=== PATIENT | female | born 1950 | race Caucasian/White ===

== ENCOUNTER → 2018-06-19 08:18 | Outpatient (CLI) | payer MEDICARE, BC, SELFPAY ==
[2018-06-19 08:48] LABS: Alanine Aminotransferase 27 IU/L (9-52); Albumin 4.4 g/dL (3.5-5.0); Albumin Globulin Ratio 1.6 (1.0-2.8); Alkaline Phosphatase 65 U/L (38-126); Aspartate Aminotransferase 25 IU/L (14-36); BUN Creatinine Ratio 21.1 (6-22); Bilirubin Total 0.7 mg/dL (0.2-1.3); Blood Urea Nitrogen 19 mg/dL (7-17); Calcium 9.7 mg/dL (8.4-10.2); Carbon Dioxide 31 mmol/L (22-32); Chloride 100 mmol/L (98-107); Estimated Glomerular Filt Rate > 60.0 mL/min (>60); Globulin 2.8 g/dL (1.7-4.1); Glucose 98 mg/dL (80-110); HEMOLYSIS < 15 (0-50); Potassium 3.6 mmol/L (3.4-5.1); Sodium 141 mmol/L (137-145); Total Protein 7.2 g/dL (6.3-8.2)
== END ==
PROVIDERS: Family Provider Family Medicine; PCP Family Medicine
DX: B35.3 Tinea pedis (principal)
CPT/HCPCS: 36415; 80053

== ENCOUNTER → 2018-09-15 08:12 | Outpatient (CLI) | payer MEDICARE, BC, SELFPAY ==
[2018-09-15 09:24] LABS: Alanine Aminotransferase 49 IU/L (9-52); Albumin 4.4 g/dL (3.5-5.0); Albumin Globulin Ratio 1.8 (1.0-2.8); Alkaline Phosphatase 65 U/L (38-126); Aspartate Aminotransferase 29 IU/L (14-36); BUN Creatinine Ratio 22.5 (6-22); Bilirubin Total 0.9 mg/dL (0.2-1.3); Blood Urea Nitrogen 18 mg/dL (7-17); Calcium 9.7 mg/dL (8.4-10.2); Carbon Dioxide 27 mmol/L (22-32); Chloride 102 mmol/L (98-107); Cholesterol 175 mg/dL (140-199); Estimated Glomerular Filt Rate > 60.0 mL/min (>60); Globulin 2.5 g/dL (1.7-4.1); Glucose 96 mg/dL (80-110); HDL Cholesterol 55 mg/dL (40-60); HEMOLYSIS < 15 (0-50); LDL Cholesterol Calculated 85 mg/dL (<100); Sodium 143 mmol/L (137-145); Total Protein 6.9 g/dL (6.3-8.2); Triglycerides 174 mg/dL (35-150)
[2018-09-15 12:00] LABS: Appearance Urine UA CLEAR; Bilirubin Urine UA NEGATIVE (NEGATIVE); Color Urine UA YELLOW; Glucose Urine UA NEGATIVE (Normal); Ketones Urine UA NEGATIVE (NEGATIVE); Leukocyte Esterase Urine UA NEGATIVE (NEGATIVE); Nitrite Urine UA NEGATIVE (Negative); Occult Blood Urine UA NEGATIVE (Negative); Protein Urine UA NEGATIVE (Negative); RBC Urine None Seen (0-5/HPF); Urobilinogen Urine UA 0.2 E.U./dL (0.2); pH Urine UA 6.5 (4.5-8.0)
[2018-09-15 12:59] LABS: Bacteria Urine Few (2-10); Culture Indicated Urine Cult Not Indicated; Squamous Epithelial Cell Urine 1-5 /HPF; WBC Urine 0-1/HPF (0-5/HPF)
== END ==
PROVIDERS: Family Provider Family Medicine; PCP Family Medicine; Visit Provider Family Medicine
DX: E78.2 Mixed hyperlipidemia (principal); I10 Essential (primary) hypertension; Z51.81 Encounter for therapeutic drug level monitoring
CPT/HCPCS: 80053; 80061; 81001

== ENCOUNTER 2018-10-18 13:34 | Emergency (ER) | payer MEDICARE, BC, SELFPAY ==
[2018-10-18 13:35] VITALS: BP 132/74; PULSE 63; RESP 14; TEMP 37; O2SAT 100
--- NOTE | 2018-10-18 14:00 | DI.CT.S_ITS ---
PROCEDURE: CT HEAD/BRAIN WO CON INDICATIONS: CHRISTY, L eye vision change TECHNIQUE: Noncontrast 4.5 mm thick angled axial sections acquired from the foramen magnum to the vertex, with coronal and sagittal reformats. For radiation dose reduction, the following was used: automated exposure control, adjustment of mA and/or kV according to patient size. COMPARISON: None. FINDINGS: Image quality: Excellent. CSF spaces: Basal cisterns are patent. No extra-axial fluid collections. The ventricles are symmetric in size and shape. Brain: No intracranial bleeds or masses. There is cerebral volume loss for age, with resultant ventricular and sulcal prominence. There are periventricular and deep white matter chronic small vessel ischemic changes. There is intracranial internal carotid artery atherosclerosis. Skull and face: Calvarium and visualized facial bones appear intact, without suspicious lesions. Sinuses: Visualized sinuses and mastoids are clear. IMPRESSION: No CT evidence of acute intracranial pathology. Dictated by: Giovanni العلي M.D. on 10/18/2018 at 14:24 Approved by: Giovanni العلي M.D. on 10/18/2018 at 14:24
[2018-10-18] MEDS: PROPARACAINE 0.5% OPHTH SOL 1 DROPS EYE-BOTH (14:06)
--- NOTE | 2018-10-18 14:06 | ED.EYEPROB ---
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 She states she had a few flashers in her left eye yesterday maybe the day before but today as definitive change in the lateral aspect of her field of view. She describes it as a crack or a tear that she can see. When she moves her eye that deficit moves with it. She denies any injury. She denies any redness, watering or discharge. The remainder of her vision is unchanged in that eye. She denies other focal neurologic findings such as numbness, tingling or weakness. She has no change in her speech. She denies any history of the same. She has no associated pain MD chief complaint: vision change Onset (ago): hour(s) Onset description: sudden Duration: constant Location: left eye Eye Symptoms: decreased vision Place: home Mechanism: none Severity: moderate Treatments Prior to Arrival: none Related Data Patient tetanus UTD: Yes Home Medications Medication Instructions Recorded Confirmed coenzyme Q10 [Co Q-10] 100 mg PO QDAY #0 02/11/18 06/19/18 Previous Rx's Medication Instructions Recorded citalopram [Celexa] 10 mg PO QDAY #90 tab 02/11/18 hydrochlorothiazide 25 mg PO QDAY #90 tab 02/11/18 simvastatin 20 mg PO Q DAY #90 tab 02/11/18 potassium chloride ER 20 mEq 20 meq PO QDAY #30 tab 09/15/18 tablet,extended release Allergies Allergy/AdvReac Type Severity Reaction Status Date / Time adhesive tape [ADHESIVE TAPE] Allergy Severe WELTS Verified 10/18/18 13:50 Review of Systems Review of Systems All systems reviewed & are unremarkable except as noted in HPI and below Constitutional Denies chills, Denies fever(s), Denies lethargy and Denies weakness Eyes Reports change in vision, Denies eye discharge, Denies irritation, Reports loss of peripheral vision and Reports loss of vision ENT Ears, Nose, Mouth, and Throat: Denies change in voice, Denies neck pain and Denies sore throat Cardiovascular Denies chest pain, Denies irregular heart rhythm, Denies lightheadedness, Denies palpitations, Denies dyspnea, Denies dyspnea on exertion and Denies orthopnea Respiratory Denies cough, Denies dyspnea, Denies dyspnea on exertion and Denies wheezing Gastrointestinal Gastrointestinal: Denies abdominal pain, Denies change in bowel habits, Denies diarrhea, Denies nausea and Denies vomiting Genitourinary Denies hematuria, Denies flank pain, Denies urinary incontinence and Denies urinary urgency Musculoskeletal Denies neck pain Integumentary/Breasts Denies pruritus, Denies erythema, Denies rash and Denies wounds Neurologic Denies confusion, Reports loss of vision and Denies weakness Psychiatric Denies anxiety, Denies confusion, Denies depression, Denies homicidal ideation and Denies suicidal ideation Endocrine Denies palpitations Hematologic/Lymphatic Denies easy bruising Allergic/Immunologic Denies wheezing PFSH Surgical History Status post delivery Status post delivery Status post hysterectomy Family History Father Heart disease Grandfather Heart disease Grandmother Stroke Grandfather Heart disease Social History Smoking Status: Never smoker alcohol intake: never Exam Narrative Exam Narrative: GENERAL: This is a well-nourished, well-developed patient, in mild distress. Wearing sunglasses. HEAD: Atraumatic. Normocephalic. No temporal or scalp tenderness. EYES: Pupils equal round and reactive. Extraocular motions intact. No scleral icterus. No injection or drainage. Bedside ultrasound demonstrates no obvious sign of retinal detachment. Gumaro-Pen notes pressure of left eye 22mmHg. Patient reports visual field change laterally which moves with eye motion. She cannot see through this visual field change. Visual Acuity OS 20/70, OD 20/20, OU 20/20 ENT: Nose without bleeding, purulent drainage or septal hematoma. Throat without erythema, tonsillar hypertrophy or exudate. Uvula midline. Airway patent. NECK: Trachea midline. No JVD or lymphadenopathy. Supple, nontender, no meningeal signs. CARDIOVASCULAR: Regular rate and rhythm without murmurs, gallops, or rubs. RESPIRATORY: Clear to auscultation. Breath sounds equal bilaterally. No wheezes, rales, or rhonchi. GASTROINTESTINAL: Abdomen soft, non-tender, nondistended. No hepato-splenomegaly, or palpable masses. No guarding. EXTREMITIES: No clubbing, cyanosis, or edema. No joint tenderness, effusion, or edema noted. BACK: Nontender without deformity or crepitance. No flank tenderness. NEURO: AOx3. SKIN: No rash or erythema. Initial Vital Signs Initial Vital Signs: Vital Signs Temperature 98.6 F 10/18/18 13:35 Pulse Rate 63 10/18/18 13:35 Respiratory Rate 14 10/18/18 13:35 Blood Pressure 132/74 10/18/18 13:35 Pulse Oximetry 100 10/18/18 13:35 Course Orders Ordered: ED Orders 10/18/18 14:00 CT head/brain wo con Stat 10/18/18 14:31 Basic Metabolic Panel Stat Complete Blood Count AUTO DIFF Stat Discontinued Medications Proparacaine HCl (Parcaine 0.5% Ophth Chery) 1 drops EYE-BOTH NOW ONE Stop: 10/18/18 14:06 Last Admin: 10/18/18 14:06 Dose: 1 drop Consultations Consultation #1: I have a suspicion of possible retinal detachment, we have no ophtho call locally, call placed to [facility]. Patient does have Ophthalmology locally and has had cataract surgery in this eye, but cannot be seen in a reasonable time frame Dr. Salazar shares the opinion that patient needs to be seen tonight and requests transport by POV to [facility] tonight. NPO Dr. Major in ED is happy to accept Images pushed, COBRA forms signed. Time: 14:13 Vital Signs - 8 hr 10/18/18 13:35 10/18/18 14:30 10/18/18 15:00 Temperature 98.6 F Pulse Rate 63 63 58 L Respiratory Rate 14 16 Blood Pressure 132/74 Blood Pressure [Right Arm] 127/68 122/61 Pulse Oximetry 100 100 100 MDM - Eye Problem Lab Data Result diagrams: 10/18/18 14:31 10/18/18 14:31 Lab Results 10/18/18 10/18/18 Range/Units 14:31 14:31 WBC 9.4 (4.5-11.0) X10^3/uL RBC 4.97 (4.0-5.2) X10^6/uL Hgb 14.3 (12.0-16.0) g/dL Hct 42.5 (36-46) % MCV 85.5 (80-100) fL MCH 28.9 (26-34) PG MCHC 33.8 (30-36) % RDW 13.3 (11.6-14.8) % Plt Count 398 (150-400) X10^3/uL Neut % (Auto) 60.9 (50-75) % Lymph % (Auto) 29.7 (25-40) % [place] % (Auto) 5.5 (3-14) % Eos % (Auto) 3.0 (2-4) % Baso % (Auto) 0.9 (0-2) % Neut # (Auto) 5700 (5918-1989) /uL Sodium 145 (137-145) mmol/L Potassium 3.6 (3.4-5.1) mmol/L Chloride 101 (98-107) mmol/L Carbon Dioxide 30 (22-32) mmol/L BUN 20 H (7-17) mg/dL Creatinine 0.90 (0.52-1.04) mg/dL Estimated GFR > 60.0 (>60) mL/min BUN/Creatinine Ratio 22.2 H (6-22) Glucose 92 (80-110) mg/dL Calcium 10.2 (8.4-10.2) mg/dL Discharge Plan Departure Patient Disposition: [facility] Clinical Impression: Retinal detachment Activity Restrictions/Additional Instructions: Please DO NOT EAT OR DRINK Proceed DIRECTLY TO [facility] EMERGENCY tell them you were seen in [facility] and Dr. Ye spoke with Dr. Salazar (ophthalmology) and Dr. Major in the Emergency Department and they know you are coming Prescriptions: No Action coenzyme Q10 [Co Q-10] 100 MG capsule 100 mg PO QDAY Qty: 0 RF: 0 citalopram [Celexa] 10 MG tablet 10 mg PO QDAY Qty: 90 RF: 1 simvastatin 20 MG tablet 20 mg PO Q DAY Qty: 90 RF: 3 hydrochlorothiazide 25 MG tablet 25 mg PO QDAY Qty: 90 RF: 1 potassium chloride [K-Tab] 20 mEq tablet extended release 20 meq PO QDAY Qty: 30 RF: 0
--- NOTE | 2018-10-18 14:11 | ED_ITS ---
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 She states she had a few flashers in her left eye yesterday maybe the day before but today as definitive change in the lateral aspect of her field of view. She describes it as a crack or a tear that she can see. When she moves her eye that deficit moves with it. She denies any injury. She denies any redness, watering or discharge. The remainder of her vision is unchanged in that eye. She denies other focal neurologic findings such as numbness, tingling or weakness. She has no change in her speech. She denies any history of the same. She has no associated pain MD chief complaint: vision change Onset (ago): hour(s) Onset description: sudden Duration: constant Location: left eye Eye Symptoms: decreased vision Place: home Mechanism: none Severity: moderate Treatments Prior to Arrival: none Related Data Patient tetanus UTD: Yes Home Medications Medication Instructions Recorded Confirmed coenzyme Q10 [Co Q-10] 100 mg PO QDAY #0 02/11/18 06/19/18 Previous Rx's Medication Instructions Recorded citalopram [Celexa] 10 mg PO QDAY #90 tab 02/11/18 hydrochlorothiazide 25 mg PO QDAY #90 tab 02/11/18 simvastatin 20 mg PO Q DAY #90 tab 02/11/18 potassium chloride ER 20 mEq 20 meq PO QDAY #30 tab 09/15/18 tablet,extended release Allergies Allergy/AdvReac Type Severity Reaction Status Date / Time adhesive tape [ADHESIVE TAPE] Allergy Severe WELTS Verified 10/18/18 13:50 Review of Systems Review of Systems All systems reviewed & are unremarkable except as noted in HPI and below Constitutional Denies chills, Denies fever(s), Denies lethargy and Denies weakness Eyes Reports change in vision, Denies eye discharge, Denies irritation, Reports loss of peripheral vision and Reports loss of vision ENT Ears, Nose, Mouth, and Throat: Denies change in voice, Denies neck pain and Denies sore throat Cardiovascular Denies chest pain, Denies irregular heart rhythm, Denies lightheadedness, Denies palpitations, Denies dyspnea, Denies dyspnea on exertion and Denies orthopnea Respiratory Denies cough, Denies dyspnea, Denies dyspnea on exertion and Denies wheezing Gastrointestinal Gastrointestinal: Denies abdominal pain, Denies change in bowel habits, Denies diarrhea, Denies nausea and Denies vomiting Genitourinary Denies hematuria, Denies flank pain, Denies urinary incontinence and Denies urinary urgency Musculoskeletal Denies neck pain Integumentary/Breasts Denies pruritus, Denies erythema, Denies rash and Denies wounds Neurologic Denies confusion, Reports loss of vision and Denies weakness Psychiatric Denies anxiety, Denies confusion, Denies depression, Denies homicidal ideation and Denies suicidal ideation Endocrine Denies palpitations Hematologic/Lymphatic Denies easy bruising Allergic/Immunologic Denies wheezing PFSH Surgical History Status post delivery Status post delivery Status post hysterectomy Family History Father Heart disease Grandfather Heart disease Grandmother Stroke Grandfather Heart disease Social History Smoking Status: Never smoker alcohol intake: never Exam Narrative Exam Narrative: GENERAL: This is a well-nourished, well-developed patient, in mild distress. Wearing sunglasses. HEAD: Atraumatic. Normocephalic. No temporal or scalp tenderness. EYES: Pupils equal round and reactive. Extraocular motions intact. No scleral icterus. No injection or drainage. Bedside ultrasound demonstrates no obvious sign of retinal detachment. Gumaro-Pen notes pressure of left eye 22mmHg. Patient reports visual field change laterally which moves with eye motion. She cannot see through this visual field change. Visual Acuity OS 20/70, OD 20/20, OU 20/20 ENT: Nose without bleeding, purulent drainage or septal hematoma. Throat without erythema, tonsillar hypertrophy or exudate. Uvula midline. Airway patent. NECK: Trachea midline. No JVD or lymphadenopathy. Supple, nontender, no meningeal signs. CARDIOVASCULAR: Regular rate and rhythm without murmurs, gallops, or rubs. RESPIRATORY: Clear to auscultation. Breath sounds equal bilaterally. No wheezes , rales, or rhonchi. GASTROINTESTINAL: Abdomen soft, non-tender, nondistended. No hepato-splenomegaly , or palpable masses. No guarding. EXTREMITIES: No clubbing, cyanosis, or edema. No joint tenderness, effusion, or edema noted. BACK: Nontender without deformity or crepitance. No flank tenderness. NEURO: AOx3. SKIN: No rash or erythema. Initial Vital Signs Initial Vital Signs: Vital Signs Temperature 98.6 F 10/18/18 13:35 Pulse Rate 63 10/18/18 13:35 Respiratory Rate 14 10/18/18 13:35 Blood Pressure 132/74 10/18/18 13:35 Pulse Oximetry 100 10/18/18 13:35 Course Orders Ordered: ED Orders 10/18/18 14:00 CT head/brain wo con Stat 10/18/18 14:31 Basic Metabolic Panel Stat Complete Blood Count AUTO DIFF Stat Discontinued Medications Proparacaine HCl (Parcaine 0.5% Ophth Chery) 1 drops EYE-BOTH NOW ONE Stop: 10/18/18 14:06 Last Admin: 10/18/18 14:06 Dose: 1 drop Consultations Consultation #1: I have a suspicion of possible retinal detachment, we have no ophtho call locally, call placed to [facility]. Patient does have Ophthalmology locally and has had cataract surgery in this eye, but cannot be seen in a reasonable time frame Dr. Salazar shares the opinion that patient needs to be seen tonight and requests transport by POV to [facility] tonight. NPO Dr. Major in ED is happy to accept Images pushed, COBRA forms signed. Time: 14:13 Vital Signs - 8 hr 10/18/18 13:35 10/18/18 14:30 10/18/18 15:00 Temperature 98.6 F Pulse Rate 63 63 58 L Respiratory Rate 14 16 Blood Pressure 132/74 Blood Pressure [Right Arm] 127/68 122/61 Pulse Oximetry 100 100 100 MDM - Eye Problem Lab Data Result diagrams: 10/18/18 14:31 10/18/18 14:31 Lab Results 10/18/18 10/18/18 Range/Units 14:31 14:31 WBC 9.4 (4.5-11.0) X10^3/uL RBC 4.97 (4.0-5.2) X10^6/uL Hgb 14.3 (12.0-16.0) g/dL Hct 42.5 (36-46) % MCV 85.5 (80-100) fL MCH 28.9 (26-34) PG MCHC 33.8 (30-36) % RDW 13.3 (11.6-14.8) % Plt Count 398 (150-400) X10^3/uL Neut % (Auto) 60.9 (50-75) % Lymph % (Auto) 29.7 (25-40) % [place] % (Auto) 5.5 (3-14) % Eos % (Auto) 3.0 (2-4) % Baso % (Auto) 0.9 (0-2) % Neut # (Auto) 5700 (9374-3365) /uL Sodium 145 (137-145) mmol/L Potassium 3.6 (3.4-5.1) mmol/L Chloride 101 (98-107) mmol/L Carbon Dioxide 30 (22-32) mmol/L BUN 20 H (7-17) mg/dL Creatinine 0.90 (0.52-1.04) mg/dL Estimated GFR > 60.0 (>60) mL/min BUN/Creatinine Ratio 22.2 H (6-22) Glucose 92 (80-110) mg/dL Calcium 10.2 (8.4-10.2) mg/dL Discharge Plan Departure Patient Disposition: [facility] Clinical Impression: Retinal detachment Activity Restrictions/Additional Instructions: Please DO NOT EAT OR DRINK Proceed DIRECTLY TO [facility] EMERGENCY tell them you were seen in [facility] Emergency and Dr. Ye spoke with Dr. Salazar (ophthalmology) and Dr. Major in the Emergency Department and they know you are coming Prescriptions: No Action coenzyme Q10 [Co Q-10] 100 MG capsule 100 mg PO QDAY Qty: 0 RF: 0 citalopram [Celexa] 10 MG tablet 10 mg PO QDAY Qty: 90 RF: 1 simvastatin 20 MG tablet 20 mg PO Q DAY Qty: 90 RF: 3 hydrochlorothiazide 25 MG tablet 25 mg PO QDAY Qty: 90 RF: 1 potassium chloride [K-Tab] 20 mEq tablet extended release 20 meq PO QDAY Qty: 30 RF: 0
[2018-10-18 14:30] VITALS: BP 127/68; PULSE 63; O2SAT 100
--- NOTE | 2018-10-18 14:33 | PC.NURSE ---
Pt refusing IV start at this time. She is agreeable to blood draw only. Lab called for draw. Provider aware.
--- NOTE | 2018-10-18 14:42 | PC.NURSE ---
States she can see a tear in her eye. There is an area of vision that is black in the peripheral as well. She also has intermittent flashing in the eye.
[2018-10-18 14:45] LABS: Add Manual Diff / Slide Review NO; Basophils Percent Auto 0.9 % (0-2); Hematocrit 42.5 % (36-46); Hemoglobin 14.3 g/dL (12.0-16.0); Lymphocytes Percent Auto 29.7 % (25-40); Mean Corpuscular HGB Conc 33.8 % (30-36); Mean Corpuscular Hemoglobin 28.9 PG (26-34); Mean Corpuscular Volume 85.5 fL (80-100); Monocytes Percent Auto 5.5 % (3-14); Neutrophils Absolute Auto 5700 /uL (3000-5900); Neutrophils Percent Auto 60.9 % (50-75); Platelet Count 398 X10^3/uL (150-400); Red Blood Cell Count 4.97 X10^6/uL (4.0-5.2); Red Cell Distribution Width 13.3 % (11.6-14.8); White Blood Cell Count 9.4 X10^3/uL (4.5-11.0)
[2018-10-18 14:52] LABS: BUN Creatinine Ratio 22.2 (6-22); Blood Urea Nitrogen 20 mg/dL (7-17); Calcium 10.2 mg/dL (8.4-10.2); Carbon Dioxide 30 mmol/L (22-32); Chloride 101 mmol/L (98-107); Estimated Glomerular Filt Rate > 60.0 mL/min (>60); Glucose 92 mg/dL (80-110); HEMOLYSIS < 15 (0-50); Potassium 3.6 mmol/L (3.4-5.1); Sodium 145 mmol/L (137-145)
[2018-10-18 15:00] VITALS: BP 122/61; PULSE 58; RESP 16; O2SAT 100
== END 2018-10-18 16:04 | disposition short-term general hospital (02) ==
PROVIDERS: Emergency Provider Emergency Medicine; Family Provider Family Medicine; PCP Family Medicine
DX: H33.22 Serous retinal detachment, left eye (principal)
CPT/HCPCS: 36415; 70450; 80048; 85025; 99283; 99284

== ENCOUNTER → 2018-12-09 08:26 | Outpatient (CLI) | payer MEDICARE, BC, SELFPAY ==
[2018-12-09 09:18] LABS: Add Manual Diff / Slide Review NO; Basophils Absolute Auto 100 /uL (0-100); Basophils Percent Auto 1.1 % (0-2); Eosinophils Absolute Auto 300 /uL (0-450); Eosinophils Percent Auto 3.2 % (2-4); Hematocrit 42.2 % (36-46); Hemoglobin 14.2 g/dL (12.0-16.0); Lymphocytes Absolute Auto 2300 /uL (1100-4500); Lymphocytes Percent Auto 26.4 % (25-40); Mean Corpuscular HGB Conc 33.7 % (30-36); Mean Corpuscular Hemoglobin 28.8 PG (26-34); Mean Corpuscular Volume 85.4 fL (80-100); Monocytes Absolute Auto 500 /uL (0-900); Monocytes Percent Auto 5.5 % (3-14); Neutrophils Absolute Auto 5700 /uL (1500-7000); Neutrophils Percent Auto 63.8 % (50-75); Platelet Count 366 X10^3/uL (150-400); Red Blood Cell Count 4.94 X10^6/uL (4.0-5.2); Red Cell Distribution Width 13.2 % (11.6-14.8); White Blood Cell Count 8.9 X10^3/uL (4.5-11.0)
[2018-12-09 09:26] LABS: Alanine Aminotransferase 33 IU/L (9-52); Albumin 4.5 g/dL (3.5-5.0); Albumin Globulin Ratio 1.5 (1.0-2.8); Alkaline Phosphatase 64 U/L (38-126); Aspartate Aminotransferase 23 IU/L (14-36); BUN Creatinine Ratio 23.3 (6-22); Bilirubin Total 0.8 mg/dL (0.2-1.3); Bilirubin Unconjugated 0.7 mg/dL (0.0-1.1); Blood Urea Nitrogen 21 mg/dL (7-17); Calcium 9.6 mg/dL (8.4-10.2); Carbon Dioxide 27 mmol/L (22-32); Chloride 100 mmol/L (98-107); Cholesterol 150 mg/dL (140-199); Estimated Glomerular Filt Rate > 60.0 mL/min (>60); Glucose 96 mg/dL (80-110); HDL Cholesterol 54 mg/dL (40-60); HEMOLYSIS < 15 (0-50); LDL Cholesterol Calculated 75 mg/dL (<100); Potassium 3.5 mmol/L (3.4-5.1); Sodium 138 mmol/L (137-145); Total Protein 7.5 g/dL (6.3-8.2); Triglycerides 104 mg/dL (35-150)
[2018-12-09 10:46] LABS: Thyroid Stimulating Hormone 2.95 uIU/mL (0.47-4.68)
== END ==
PROVIDERS: PCP Family Medicine; Visit Provider Physician Assistant
DX: L82.0 Inflamed seborrheic keratosis (principal); Z78.9 Other specified health status; R20.8 Other disturbances of skin sensation; L53.8 Other specified erythematous conditions; L60.3 Nail dystrophy; E78.2 Mixed hyperlipidemia; I10 Essential (primary) hypertension; Z51.81 Encounter for therapeutic drug level monitoring
CPT/HCPCS: 36415; 80053; 80061; 80076; 84443; 85025

== ENCOUNTER → 2019-02-07 09:19 | Outpatient (CLI) | payer MEDICARE, BC, SELFPAY ==
[2019-02-07 10:46] LABS: Add Manual Diff / Slide Review NO; Basophils Absolute Auto 100 /uL (0-100); Basophils Percent Auto 1.1 % (0-2); Eosinophils Absolute Auto 300 /uL (0-450); Eosinophils Percent Auto 3.9 % (2-4); Hematocrit 42.9 % (36-46); Hemoglobin 14.5 g/dL (12.0-16.0); Lymphocytes Absolute Auto 2300 /uL (1100-4500); Lymphocytes Percent Auto 26.8 % (25-40); Mean Corpuscular HGB Conc 33.9 % (30-36); Mean Corpuscular Hemoglobin 28.8 PG (26-34); Monocytes Absolute Auto 500 /uL (0-900); Monocytes Percent Auto 5.5 % (3-14); Neutrophils Absolute Auto 5400 /uL (1500-7000); Neutrophils Percent Auto 62.7 % (50-75); Platelet Count 419 X10^3/uL (150-400); Red Blood Cell Count 5.05 X10^6/uL (4.0-5.2); Red Cell Distribution Width 13.6 % (11.6-14.8); White Blood Cell Count 8.6 X10^3/uL (4.5-11.0)
[2019-02-07 11:08] LABS: Alanine Aminotransferase 30 IU/L (9-52); Albumin 4.5 g/dL (3.5-5.0); Albumin Globulin Ratio 1.6 (1.0-2.8); Alkaline Phosphatase 62 U/L (38-126); Aspartate Aminotransferase 27 IU/L (14-36); Bilirubin Total 0.8 mg/dL (0.2-1.3); Bilirubin Unconjugated 0.7 mg/dL (0.0-1.1); Globulin 2.9 g/dL (1.7-4.1); HEMOLYSIS < 15 (0-50); Total Protein 7.4 g/dL (6.3-8.2)
== END ==
PROVIDERS: PCP Family Medicine; Visit Provider Physician Assistant
DX: L60.3 Nail dystrophy (principal)
CPT/HCPCS: 36415; 80076; 85025

== ENCOUNTER → 2019-12-28 07:35 | Outpatient (CLI) | payer MEDICARE, BC, SELFPAY ==
[2019-12-28 08:34] LABS: BUN Creatinine Ratio 25.7 (6-22); Blood Urea Nitrogen 18 mg/dL (7-17); Calcium 10.1 mg/dL (8.4-10.2); Carbon Dioxide 25 mmol/L (22-32); Chloride 103 mmol/L (98-107); Estimated Glomerular Filt Rate > 60.0 mL/min (>60); Glucose 107 mg/dL (80-110); HEMOLYSIS < 15 (0-50); Sodium 140 mmol/L (137-145)
== END ==
PROVIDERS: PCP Family Medicine; Referring Provider Family Medicine; Visit Provider Family Medicine
DX: E78.2 Mixed hyperlipidemia (principal)
CPT/HCPCS: 36415; 80048

== ENCOUNTER → 2020-07-20 14:12 | Outpatient (CLI) | payer MEDICARE, BC, SELFPAY | PROVIDERS: PCP Nurse Practitioner Family; Referring Provider Nurse Practitioner Family; Visit Provider Nurse Practitioner Family | DX: M85.852 Other specified disorders of bone density and structure, left thigh (principal); Z78.0 Asymptomatic menopausal state; Z82.62 Family history of osteoporosis | CPT/HCPCS: 77080 ==

== ENCOUNTER → 2020-07-30 12:42 | Outpatient (CLI) | payer MEDICARE, BC, SELFPAY ==
--- NOTE | 2020-07-30 12:44 | DI.MG.S_ITS ---
BILATERAL DIGITAL SCREENING MAMMOGRAM 3D/2D WITH CAD: 07/30/2020 CLINICAL: Routine screening. Family history of breast cancer. Comparison is made to exams dated: 04/08/2019 mammogram, 03/28/2018 mammogram, and 03/05/2017 mammogram - [facility]. The tissue of both breasts is predominantly fatty. Current study was also evaluated with a Computer Aided Detection (CAD) system. No significant masses, calcifications, or other findings are seen in either breast. There has been no significant interval change. IMPRESSION: NEGATIVE There is no mammographic evidence of malignancy. A 1 year screening mammogram is recommended. This exam was interpreted at Station ID: [id number]. NOTE: For mammograms, a report in lay terms will be sent to the patient. Approximately 15% of breast malignancies will not be visualized mammographically. In the management of a palpable breast mass, a negative mammogram must not discourage biopsy of a clinically suspicious lesion. Electronically Signed By: Shai olivera/abrahan:08/01/2020 08:07:23 letter sent: Normal Exam ACR BI-RADS Category 1: Negative 3341F
== END ==
PROVIDERS: PCP Nurse Practitioner Family; Referring Provider Nurse Practitioner Family; Visit Provider Nurse Practitioner Family
DX: Z12.31 Encounter for screening mammogram for malignant neoplasm of breast (principal); Z80.3 Family history of malignant neoplasm of breast
CPT/HCPCS: 77063; 77067

== ENCOUNTER → 2020-12-02 08:02 | Outpatient (CLI) | payer MEDICARE, BC, SELFPAY ==
[2020-12-02 08:09] LABS: Bacteria Urine None Seen
[2020-12-02 08:28] LABS: Appearance Urine UA CLEAR; Bilirubin Urine UA NEGATIVE (NEGATIVE); Color Urine UA YELLOW; Glucose Urine UA NEGATIVE (Negative); Ketones Urine UA NEGATIVE (NEGATIVE); Leukocyte Esterase Urine UA 1+ (NEGATIVE); Nitrite Urine UA NEGATIVE (Negative); Occult Blood Urine UA NEGATIVE (Negative); Protein Urine UA NEGATIVE (Negative); Specific Gravity Urine UA 1.015 (1.000-1.035); Urobilinogen Urine UA 0.2 E.U./dL (0.2)
[2020-12-02 08:44] LABS: Creatinine Urine Random 75.4 mg/dL
[2020-12-02 08:48] LABS: Culture Indicated Urine Specimen Cultured; RBC Urine 0-1/HPF (0-5/HPF); Squamous Epithelial Cell Urine 0-1 /HPF (0-5/HPF); WBC Urine 1-5/HPF (0-5/HPF)
[2020-12-02 09:01] LABS: Microalbumin Urine Random < 0.6 mg/dL (0-1.6)
[2020-12-02 09:08] LABS: Hematocrit 43.8 % (36-46); Hemoglobin 14.8 g/dL (12.0-16.0); Mean Corpuscular HGB Conc 33.8 % (30-36); Mean Corpuscular Hemoglobin 28.8 PG (26-34); Platelet Count 440 X10^3/uL (150-400); Red Blood Cell Count 5.16 X10^6/uL (4.0-5.2); Red Cell Distribution Width 13.4 % (11.6-14.8); White Blood Cell Count 9.7 X10^3/uL (4.5-11.0)
[2020-12-02 09:24] LABS: Alanine Aminotransferase 24 IU/L (<35); Albumin 4.4 g/dL (3.5-5.0); Albumin Globulin Ratio 1.5 (1.0-2.8); Alkaline Phosphatase 63 U/L (38-126); Aspartate Aminotransferase 27 IU/L (14-36); Bilirubin Total 0.6 mg/dL (0.2-1.3); Blood Urea Nitrogen 24 mg/dL (7-17); Calcium 9.5 mg/dL (8.4-10.2); Carbon Dioxide 31 mmol/L (22-32); Chloride 101 mmol/L (98-107); Cholesterol 149 mg/dL (140-199); Estimated Glomerular Filt Rate > 60.0 mL/min (>60); Glucose 98 mg/dL (80-110); HDL Cholesterol 54 mg/dL (40-60); HEMOLYSIS < 15 (0-50); LDL Cholesterol Calculated 71 mg/dL (<100); Potassium 3.5 mmol/L (3.4-5.1); Sodium 138 mmol/L (137-145); Total Protein 7.4 g/dL (6.3-8.2); Triglycerides 120 mg/dL (35-150)
== END ==
PROVIDERS: PCP Nurse Practitioner Family; Referring Provider Nurse Practitioner Family; Visit Provider Nurse Practitioner Family
DX: I10 Essential (primary) hypertension (principal); Z01.89 Encounter for other specified special examinations; E78.2 Mixed hyperlipidemia
CPT/HCPCS: 36415; 80053; 80061; 81001; 82043; 82570; 85027; 86900; 86901; 87077; 87086

== ENCOUNTER → 2020-12-06 14:43 | Outpatient (CLI) | payer MEDICARE, BC, SELFPAY ==
[2020-12-06 15:28] LABS: Bacteria Urine None Seen; RBC Urine None Seen (0-5/HPF)
[2020-12-06 16:01] LABS: Appearance Urine UA CLEAR; Bilirubin Urine UA NEGATIVE (NEGATIVE); Color Urine UA YELLOW; Glucose Urine UA NEGATIVE (Negative); Ketones Urine UA NEGATIVE (NEGATIVE); Leukocyte Esterase Urine UA NEGATIVE (NEGATIVE); Nitrite Urine UA NEGATIVE (Negative); Occult Blood Urine UA NEGATIVE (Negative); Protein Urine UA NEGATIVE (Negative); Urobilinogen Urine UA 0.2 E.U./dL (0.2)
[2020-12-06 16:09] LABS: pH Urine UA 6.5 (4.5-8.0)
[2020-12-06 16:10] LABS: Culture Indicated Urine Cult Not Indicated; Squamous Epithelial Cell Urine 0-1 /HPF (0-5/HPF); WBC Urine 0-1/HPF (0-5/HPF)
== END ==
PROVIDERS: PCP Nurse Practitioner Family; Referring Provider Nurse Practitioner Family; Visit Provider Nurse Practitioner Family
DX: R30.0 Dysuria (principal)
CPT/HCPCS: 81001

== ENCOUNTER → 2021-08-01 09:44 | Outpatient (CLI) | payer MEDICARE, BC, SELFPAY ==
[2021-08-01 10:39] LABS: Appearance Urine UA CLEAR; Bilirubin Urine UA NEGATIVE (NEGATIVE); Color Urine UA YELLOW; Glucose Urine UA NEGATIVE (Negative); Ketones Urine UA NEGATIVE (NEGATIVE); Leukocyte Esterase Urine UA TRACE (NEGATIVE); Nitrite Urine UA NEGATIVE (Negative); Occult Blood Urine UA TRACE-INTACT (Negative); Protein Urine UA NEGATIVE (Negative); Urobilinogen Urine UA 0.2 E.U./dL (0.2); pH Urine UA 6.5 (4.5-8.0)
[2021-08-01 10:45] LABS: RBC Urine None Seen (0-5/HPF)
[2021-08-01 10:46] LABS: Bacteria Urine None Seen; Culture Indicated Urine Cult Not Indicated; Urine Comments Microscopic Normal; WBC Urine None Seen (0-5/HPF)
--- NOTE | 2021-08-01 17:13 | DI.MG.S_ITS ---
BILATERAL DIGITAL SCREENING MAMMOGRAM 3D/2D WITH CAD: 08/01/2021 CLINICAL: Routine screening. Family history of breast cancer. Comparison is made to exams dated: 07/30/2020 mammogram - [facility], 04/08/2019 mammogram, and 03/28/2018 mammogram - [facility]. There are scattered fibroglandular elements in both breasts. Current study was also evaluated with a Computer Aided Detection (CAD) system. No significant masses, calcifications, or other findings are seen in either breast. There has been no significant interval change. IMPRESSION: NEGATIVE There is no mammographic evidence of malignancy. A 1 year screening mammogram is recommended. This exam was interpreted at Station ID: [id number]. NOTE: For mammograms, a report in lay terms will be sent to the patient. Approximately 15% of breast malignancies will not be visualized mammographically. In the management of a palpable breast mass, a negative mammogram must not discourage biopsy of a clinically suspicious lesion. Electronically Signed By: Maciej avelar/abrahan:08/02/2021 09:21:04 letter sent: Normal Exam ACR BI-RADS Category 1: Negative [id number]
== END ==
PROVIDERS: PCP Nurse Practitioner Family; Referring Provider Nurse Practitioner Family; Visit Provider Nurse Practitioner Family
DX: Z12.31 Encounter for screening mammogram for malignant neoplasm of breast (principal); R35.0 Frequency of micturition; Z80.3 Family history of malignant neoplasm of breast
CPT/HCPCS: 77063; 77067; 81001

== ENCOUNTER → 2021-08-08 10:35 | Outpatient (CLI) | payer MEDICARE, OTHER, SELFPAY ==
[2021-08-08 11:17] LABS: Appearance Urine UA CLEAR; Bilirubin Urine UA NEGATIVE (NEGATIVE); Color Urine UA YELLOW; Glucose Urine UA NEGATIVE (Negative); Ketones Urine UA NEGATIVE (NEGATIVE); Leukocyte Esterase Urine UA NEGATIVE (NEGATIVE); Nitrite Urine UA NEGATIVE (Negative); Occult Blood Urine UA TRACE-INTACT (Negative); Protein Urine UA NEGATIVE (Negative); Specific Gravity Urine UA <=1.005 (1.000-1.035); Urobilinogen Urine UA 0.2 E.U./dL (0.2)
[2021-08-08 11:20] LABS: pH Urine UA 6.5 (4.5-8.0)
[2021-08-08 11:30] LABS: Bacteria Urine None Seen; Culture Indicated Urine Cult Not Indicated; RBC Urine None Seen (0-5/HPF); Urine Comments Microscopic Normal; WBC Urine None Seen (0-5/HPF)
== END ==
PROVIDERS: PCP Nurse Practitioner Family; Referring Provider Nurse Practitioner Family; Visit Provider Nurse Practitioner Family
DX: N39.0 Urinary tract infection, site not specified (principal)
CPT/HCPCS: 81001

== ENCOUNTER → 2022-08-09 15:11 | Outpatient (CLI) | payer MEDICARE, OTHER, SELFPAY ==
--- NOTE | 2022-08-09 | DI.MG.S_ITS ---
BILATERAL DIGITAL SCREENING MAMMOGRAM 3D/2D WITH CAD: 08/09/2022 CLINICAL: Routine screening. Family history of breast cancer. Comparison is made to exams dated: 08/01/2021 mammogram, 07/30/2020 mammogram - [facility], and 04/08/2019 mammogram - [facility]. There are scattered areas of fibroglandular density in both breasts (category b / 25%-50% glandular tissue). Current study was also evaluated with a Computer Aided Detection (CAD) system. No significant masses, calcifications, or other findings are seen in either breast. There has been no significant interval change. IMPRESSION: NEGATIVE There is no mammographic evidence of malignancy. A 1 year screening mammogram is recommended. Based on the Tyrer Cuzick model (a risk assessment model) the patient's lifetime risk is 8.3% and her 10 year risk is 5.2%. According to the ACR, ACS, and NCCN guidelines, an annual breast MRI exam along with mammogram is recommended if the patient's lifetime risk is 20% or greater. This exam was interpreted at Station ID: [id number]. NOTE: For mammograms, a report in lay terms will be sent to the patient. Approximately 15% of breast malignancies will not be visualized mammographically. In the management of a palpable breast mass, a negative mammogram must not discourage biopsy of a clinically suspicious lesion. Electronically Signed By: Rigo ortez/abrahan:08/09/2022 15:33:12 letter sent: Normal Exam ACR BI-RADS Category 1: Negative [id number]
== END ==
PROVIDERS: PCP Family Medicine; Referring Provider Family Medicine; Visit Provider Family Medicine
DX: Z12.31 Encounter for screening mammogram for malignant neoplasm of breast (principal); Z80.3 Family history of malignant neoplasm of breast
CPT/HCPCS: 77063; 77067

== ENCOUNTER → 2022-08-17 07:36 | Outpatient (CLI) | payer MEDICARE, OTHER, SELFPAY ==
[2022-08-17 08:25] LABS: Appearance Urine UA CLEAR; Bilirubin Urine UA NEGATIVE (NEGATIVE); Color Urine UA YELLOW; Glucose Urine UA NEGATIVE (Negative); Ketones Urine UA NEGATIVE (NEGATIVE); Leukocyte Esterase Urine UA TRACE (NEGATIVE); Nitrite Urine UA NEGATIVE (Negative); Occult Blood Urine UA TRACE-LYSED (Negative); Protein Urine UA NEGATIVE (Negative); Urobilinogen Urine UA 0.2 E.U./dL (0.2)
[2022-08-17 08:29] LABS: pH Urine UA 5.5 (4.5-8.0)
[2022-08-17 08:40] LABS: Bacteria Urine None Seen; Culture Indicated Urine Specimen Cultured; RBC Urine None Seen (0-5/HPF); Squamous Epithelial Cell Urine None Seen (0-5/HPF); WBC Urine None Seen (0-5/HPF)
[2022-08-17 09:13] LABS: Add Manual Diff / Slide Review NO; Basophils Absolute Auto 100 /uL (0-100); Basophils Percent Auto 1.1 % (0-2); Eosinophils Absolute Auto 400 /uL (0-450); Hematocrit 42.1 % (36-46); Hemoglobin 14.4 g/dL (12.0-16.0); Lymphocytes Absolute Auto 2100 /uL (1100-4500); Lymphocytes Percent Auto 26.2 % (25-40); Mean Corpuscular HGB Conc 34.2 % (30-36); Mean Corpuscular Hemoglobin 28.8 PG (26-34); Mean Corpuscular Volume 84.2 fL (80-100); Monocytes Absolute Auto 500 /uL (0-900); Monocytes Percent Auto 6.2 % (3-14); Neutrophils Absolute Auto 5000 /uL (1500-7000); Neutrophils Percent Auto 61.5 % (50-75); Platelet Count 417 X10^3/uL (150-400); Red Cell Distribution Width 13.3 % (11.6-14.8); White Blood Cell Count 8.1 X10^3/uL (4.5-11.0)
[2022-08-17 10:36] LABS: BUN Creatinine Ratio 21.7 (6-22); Blood Urea Nitrogen 20 mg/dL (7-17); Calcium 9.6 mg/dL (8.4-10.2); Carbon Dioxide 29 mmol/L (22-32); Chloride 100 mmol/L (98-107); Cholesterol 181 mg/dL (140-199); Estimated Glomerular Filt Rate > 60 mL/min (>60); Glucose 97 mg/dL (80-110); HDL Cholesterol 60 mg/dL (40-60); HEMOLYSIS < 15 (0-50); LDL Cholesterol Calculated 92 mg/dL (<100); Potassium 3.8 mmol/L (3.4-5.1); Sodium 140 mmol/L (137-145); Triglycerides 143 mg/dL (35-150)
[2022-08-17 10:53] LABS: Vitamin D 25 Hydroxy (D3) 50.1 ng/mL (30.0-100.0)
[2022-08-17 11:02] LABS: Creatinine Urine Random 97.3 mg/dL
[2022-08-17 11:06] LABS: Microalbumi Creatinin Ratio Ur 6.1 ug/mg CR (<30); Microalbumin Urine Random 0.6 mg/dL (0-1.6)
== END ==
PROVIDERS: PCP Family Medicine; Referring Provider Family Medicine; Visit Provider Family Medicine
DX: E55.9 Vitamin D deficiency, unspecified (principal); I10 Essential (primary) hypertension; E78.2 Mixed hyperlipidemia; R30.0 Dysuria; B37.31 Acute candidiasis of vulva and vagina
CPT/HCPCS: 36415; 80048; 80061; 81001; 82043; 82306; 82570; 85025; 87086

== ENCOUNTER 2023-02-20 22:51 | Emergency (ER) | payer MEDICARE, OTHER, SELFPAY ==
[2023-02-20 23:05] VITALS: BP 133/66; PULSE 64; RESP 18; TEMP 36.6; O2SAT 99; BMI 33.3
--- NOTE | 2023-02-20 23:15 | DI.US.S_ITS ---
PROCEDURE: US PERIPH VENOUS LOW EXTREM LT INDICATIONS: LEFT KNEE PAIN, SWELLING TECHNIQUE: Real-time imaging, as well as color and pulse Doppler interrogation, were performed of the lower extremity deep veins from the inguinal ligament to the popliteal fossa. COMPARISON: None. FINDINGS: The common femoral, femoral and popliteal veins are normally compressible, and free of intraluminal thrombus. Color and pulse Doppler demonstrate normal phasic intraluminal flow. There is normal augmentation response to distal compression maneuver. No fluid collection identified in the region of pain about the lateral knee. IMPRESSION: No left lower extremity DVT. Dictated by: Shadi Molina M.D. on 02/21/2023 at 0:12 Approved by: Shadi Molina M.D. on 02/21/2023 at 0:13
--- NOTE | 2023-02-21 01:39 | ED_ITS ---
HPI - Extremity Problem General Chief complaint: Extremity Problem,Nontraumatic Stated complaint: left leg pain Source: patient Mode of arrival: Wheelchair Related Data Home Medications Medication Instructions Recorded Confirmed coenzyme Q10 100 mg capsule (Co 100 mg PO QDAY ##0 02/11/18 09/03/22 Q-10) calcium acetate 668 mg (169 mg 668 mg PO ONCE 07/29/19 09/03/22 calcium) tablet cholecalciferol (vitamin D3) 25 25 mcg PO DAILY 08/08/22 09/03/22 mcg (1,000 unit) capsule wyprgpoj-zespzt-lzzlziqp acid PO 08/08/22 09/03/22 [Collagen 1500 Plus C] Previous Rx's Medication Instructions Recorded hydrochlorothiazide 25 mg tablet 25 mg PO DAILY #90 tabs 12/11/22 potassium chloride 20 mEq 20 meq PO DAILY #90 tabs 12/11/22 tablet,extended release simvastatin 20 mg tablet 20 mg PO BEDTIME #90 tabs 12/11/22 Allergies Allergy/AdvReac Type Severity Reaction Status Date / Time adhesive tape [ADHESIVE TAPE] Allergy Severe WELTS Verified 09/03/22 13:37 Patient History Medical History (Updated 02/21/23 @ 01:01 by Violeta Cuevas, NBA) Abdominal discomfort Breast tenderness Cervical somatic dysfunction Cranial somatic dysfunction Greater trochanteric bursitis of both hips Grief reaction with prolonged bereavement Hamstring strain Hypokalemia due to excessive renal loss of potassium Intertriginous candidiasis Low back pain Mixed anxiety depressive disorder (12/18/16) Pelvic pressure in female Pelvic somatic dysfunction Post-menopausal Screening for malignant neoplasm of breast Screening for malignant neoplasm of colon Segmental and somatic dysfunction of abdomen and other regions Segmental and somatic dysfunction of lumbar region Segmental and somatic dysfunction of sacral region Segmental and somatic dysfunction of thoracic region Situational depression Stiff neck Yeast infection involving the vagina and surrounding area Surgical History Status post delivery Status post delivery Status post hysterectomy Family History Father Heart disease Grandfather Heart disease Grandmother Stroke Grandfather Heart disease Social History Smoking Status: Never smoker alcohol intake: current substance use type: does not use Smoking Status: Never smoker alcohol intake frequency: 0-2 drinks per day Substance Use Type: does not use Exam Initial Vital Signs Initial Vital Signs: Vital Signs Temperature 97.9 F 02/20/23 23:05 Pulse Rate 64 02/20/23 23:05 Respiratory Rate 18 02/20/23 23:05 Blood Pressure 133/66 02/20/23 23:05 Pulse Oximetry 99 02/20/23 23:05 Oxygen Delivery Method Room Air 02/20/23 23:05 Course Orders Ordered: ED Orders 02/20/23 23:15 US periph venous low extrem lt Stat Vital Signs Vital signs: Vital Signs - 8 hr 02/20/23 23:05 Temperature 97.9 F Pulse Rate 64 Respiratory Rate 18 Blood Pressure 133/66 Pulse Oximetry 99 Oxygen Delivery Method Room Air MDM - Extremity (Nontraumatic) Imaging Data US - DVT: Radiologist's Impression: [address] [address] Ultrasound Report Signed Patient: Shelia Abreu MR#: [id number] : 1950 Acct:[id number] Age/Sex: 72 / F Date of Service: 02/20/23 Loc: ED Accession Number: [id number] ?? Procedure: US periph venous low extrem lt Ordering Provider: Jessica Kothari D.O. PROCEDURE:? US PERIPH VENOUS LOW EXTREM LT ? INDICATIONS:? LEFT KNEE PAIN, SWELLING ? TECHNIQUE:? Real-time imaging, as well as color and pulse Doppler interrogation, were performed of the lower extremity deep veins from the inguinal ligament to the popliteal fossa.? ? COMPARISON:? None. ? FINDINGS:? The common femoral, femoral and popliteal veins are normally compressible, and free of intraluminal thrombus.? Color and pulse Doppler demonstrate normal phasic intraluminal flow.? There is normal augmentation response to distal compression maneuver. ? ? No fluid collection identified in the region of pain about the lateral knee. ? IMPRESSION:? No left lower extremity DVT. ? ? Dictated by: Shadi Molina M.D. on 02/21/2023 at 0:12 ? ? Approved by: Shadi Molina M.D. on 02/21/2023 at 0:13?? MDM Narrative Medical decision making narrative: Patient left without being seen, patient did have DVT study ordered and is negative. For left lower extremity. Discharge Plan Departure Patient Disposition: Left Without Being Seen Clinical Impression: Patient left before evaluation by physician Prescriptions: No Action coenzyme Q10 [Co Q-10] 100 MG capsule 100 mg PO QDAY Qty: 0 simvastatin 20 mg tablet 20 mg PO BEDTIME Qty: 90 0RF hydrochlorothiazide 25 mg tablet 25 mg PO DAILY Qty: 90 0RF potassium chloride 20 mEq tablet extended release 20 meq PO DAILY Qty: 90 0RF calcium acetate 668 mg (169 mg calcium) tablet 668 mg PO ONCE cholecalciferol (vitamin D3) 25 mcg (1,000 unit) capsule 25 mcg PO DAILY kfwknvnu-ikjvvg-lqyolxia acid [Collagen 1500 Plus C] PO
== END 2023-02-21 00:55 | disposition left against medical advice (07) ==
PROVIDERS: Emergency Provider Emergency Medicine; PCP Family Medicine
DX: M79.605 Pain in left leg (principal); R60.9 Edema, unspecified
CPT/HCPCS: 93971; 99283

== ENCOUNTER → 2023-08-13 14:57 | Outpatient (CLI) | payer MEDICARE, OTHER, SELFPAY ==
--- NOTE | 2023-08-13 14:59 | DI.MG.S_ITS ---
BILATERAL DIGITAL SCREENING MAMMOGRAM 3D/2D WITH CAD: 08/13/2023 CLINICAL: Routine screening. Family history of breast cancer. Comparison is made to exams dated: 08/09/2022 mammogram, 08/01/2021 mammogram, and 07/30/2020 mammogram - [facility]. There are scattered areas of fibroglandular density in both breasts (category b / 25%-50% glandular tissue). Current study was also evaluated with a Computer Aided Detection (CAD) system. No significant masses, calcifications, or other findings are seen in either breast. There has been no significant interval change. IMPRESSION: NEGATIVE There is no mammographic evidence of malignancy. A 1 year screening mammogram is recommended. Based on the Tyrer Cuzick model (a risk assessment model) the patient's lifetime risk is 7.8% and her 10 year risk is 5.4%. According to the ACR, ACS, and NCCN guidelines, an annual breast MRI exam along with mammogram is recommended if the patient's lifetime risk is 20% or greater. This exam was interpreted at Station ID: [id number]. NOTE: For mammograms, a report in lay terms will be sent to the patient. Approximately 15% of breast malignancies will not be visualized mammographically. In the management of a palpable breast mass, a negative mammogram must not discourage biopsy of a clinically suspicious lesion. Electronically Signed By: Shai olivera/abrahan:08/14/2023 13:20:11 letter sent: Normal Exam ACR BI-RADS Category 1: Negative [id number]
== END ==
PROVIDERS: Family Provider Family Medicine; PCP Family Medicine; Referring Provider Family Medicine; Visit Provider Family Medicine
DX: Z12.31 Encounter for screening mammogram for malignant neoplasm of breast (principal); Z80.3 Family history of malignant neoplasm of breast
CPT/HCPCS: 77063; 77067

== ENCOUNTER → 2023-08-30 07:26 | Outpatient (CLI) | payer MEDICARE, OTHER, SELFPAY ==
[2023-08-30 08:48] LABS: Add Manual Diff / Slide Review NO; Basophils Absolute Auto 100 /uL (0-100); Basophils Percent Auto 1.2 % (0-2); Eosinophils Absolute Auto 500 /uL (0-450); Eosinophils Percent Auto 6.2 % (2-4); Hematocrit 41.9 % (36-46); Hemoglobin 14.4 g/dL (12.0-16.0); Lymphocytes Absolute Auto 2400 /uL (1100-4500); Lymphocytes Percent Auto 27.1 % (25-40); Mean Corpuscular HGB Conc 34.3 % (30-36); Mean Corpuscular Hemoglobin 28.9 PG (26-34); Mean Corpuscular Volume 84.1 fL (80-100); Monocytes Absolute Auto 500 /uL (0-900); Monocytes Percent Auto 5.6 % (3-14); Neutrophils Absolute Auto 5200 /uL (1500-7000); Neutrophils Percent Auto 59.9 % (50-75); Platelet Count 440 X10^3/uL (150-400); Red Blood Cell Count 4.98 X10^6/uL (4.0-5.2); Red Cell Distribution Width 13.3 % (11.6-14.8); White Blood Cell Count 8.7 X10^3/uL (4.5-11.0)
[2023-08-30 09:04] LABS: Hemoglobin A1C% w Est Avg Glu 5.6 % (4.0-6.0)
[2023-08-30 09:13] LABS: Alanine Aminotransferase 28 IU/L (<35); Albumin 4.4 g/dL (3.5-5.0); Albumin Globulin Ratio 1.7 (1.0-2.8); Alkaline Phosphatase 74 U/L (38-126); Aspartate Aminotransferase 25 IU/L (14-36); BUN Creatinine Ratio 21.7 (6-22); Bilirubin Total 0.7 mg/dL (0.2-1.3); Blood Urea Nitrogen 18 mg/dL (7-17); Calcium 10.1 mg/dL (8.4-10.2); Carbon Dioxide 27 mmol/L (22-32); Chloride 101 mmol/L (98-107); Cholesterol 173 mg/dL (140-199); Estimated Glomerular Filt Rate > 60 mL/min (>60); Globulin 2.6 g/dL (1.7-4.1); Glucose 104 mg/dL (80-110); HDL Cholesterol 49 mg/dL (40-60); HEMOLYSIS < 15 (0-50); LDL Cholesterol Calculated 90 mg/dL (<100); Potassium 3.8 mmol/L (3.4-5.1); Sodium 139 mmol/L (137-145); Triglycerides 171 mg/dL (35-150)
[2023-08-30 09:16] LABS: High Sensitivity CRP - Cardiac 4.5 mg/L (1.0-3.0)
[2023-08-30 09:27] LABS: Vitamin D 25 Hydroxy (D3) 37.8 ng/mL (30.0-100.0)
[2023-08-30 09:42] LABS: TSH w/ Reflex to FT4 1.98 uIU/mL (0.47-4.68)
[2023-08-30 10:01] LABS: Vitamin B12 633 pg/mL (239-931)
== END ==
PROVIDERS: Family Provider Family Medicine; PCP Family Medicine; Referring Provider Family Medicine; Visit Provider Family Medicine
DX: E87.6 Hypokalemia (principal); R73.9 Hyperglycemia, unspecified; E78.2 Mixed hyperlipidemia; E55.9 Vitamin D deficiency, unspecified; I10 Essential (primary) hypertension; D64.9 Anemia, unspecified; R53.83 Other fatigue
CPT/HCPCS: 36415; 80053; 80061; 82306; 82607; 83036; 84443; 85025; 86140

== ENCOUNTER → 2023-09-16 10:36 | Outpatient (CLI) | payer MEDICARE, OTHER, SELFPAY | PROVIDERS: Family Provider Family Medicine; PCP Family Medicine; Referring Provider Podiatrist; Visit Provider Podiatrist | DX: Z01.818 Encounter for other preprocedural examination (principal) | CPT/HCPCS: 93005 ==

== ENCOUNTER 2023-10-10 12:21 | Day surgery (SDC) | payer MEDICARE, OTHER, SELFPAY ==
[2023-10-08 12:29] VITALS: BMI 33.3
[2023-10-10 12:53] VITALS: BP 117/59; PULSE 66; RESP 16; TEMP 36.2; O2SAT 99; BMI 33.3
[2023-10-10] MEDS: LACTATED RINGERS 1,000 ML 42 ML IV ×2 (12:57→16:19)
--- NOTE | 2023-10-10 15:12 | P.OP_ITS ---
Operative Date/Time/Diagnoses Date of procedure: 10/10/23 Time of procedure: 15:12 Pre-op diagnosis: Left foot bunion, second hammertoe, capsulitis Post-op diagnosis: same Procedure & Clinicians Procedure: 1. Left first metatarsophalangeal arthrodesis 2. Left second proximal interphalangeal arthrodesis with metatarsophalangeal capsulotomy Same procedure as scheduled: Yes Indications: 73 yo female with ongoing pain to the left first toe joint and bunion, and second hammertoe with joint. Conservative management failed to alleviate her pain and she wished to have surgical intervention at this time. We spoke of the risks, potential complications, expected outcomes. Consent was signed and there were no contraindications to the procedure at this time. Surgeon: Roxy Bermudez Click Yes if Unassisted: Yes Anesthesia Type: General Operative Notes Closure Type: primary Specimen(s): none sent Prosthetic devices, grafts, tissues, transplants, or devices: [place] 1st MTP fusion plate, 4.0 cannulated screw, 3.5 locking (5) and nonlocking (1) screws. 0.062 k-wire. Estimated Blood Loss (mL): 30 Blood products transfused: none Tourniquet time (min): 88 Procedure in detail: The patient was brought to the operating room and placed on the operating table in the supine position. A tourniquet was placed about the patient's left thigh. After induction of general anesthesia the foot and ankle were prepped and draped in the usual aseptic manner. The tourniquet was inflated. 1. Incision was made over the dorsal aspect of the left 1st metatarsophalangeal joint. The incision was deepened through subcutaneous tissues being careful to identify and retract all vital neurovascular structures. All bleeders were cauterized and ligated necessary. Dorsolateral first metatarsal head spurring was noted, and joint was very tight. 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 I also noted an enlarged medial eminence of the 1st metatarsal head. A saw was used to resect the medial eminence enlargement as w ell as some of the more prominent areas of spurring at the 1st metatarsophalangeal joint. A guidewire was placed in the 1st metatarsal head and a reamer was used to resect the cartilage from the 1st metatarsal head and prepare the joint. Guidewire was removed. A currette was used to remove the cartilage from the proximal phalanx base. Subchondral drilling was performed to either side with a guidewire as well as some fish scaling using a small osteotome. The area was irrigated with copious amount of normal sterile saline. Temporary fixation across the joint was placed with a guidewire and this was checked under C-arm to be in appropriate alignment. A plate was chosen and any further reduction of prominences dorsally was performed with a rasp and rongeur. Using the aid of fluoroscopy, the guide wire was used as cannulation for the drill for a lag screw from the distal medial to proximal lateral 1st metatarsal phalangeal joint. Confirmed appropriate in all 3 planes, a partially threaded screw was placed and the guidewire removed. Good strength and reduction of the former joint. Plate was placed and with the aid of fluoroscopy a series of locking screws and a nonlocking screw were placed across the plate and steadied the joint well. This was checked on C-arm. The area was irrigated with copious amounts of normal sterile saline. 2. Incision was made over the 2nd distal and proximal interphalangeal joints dorsally. The incision was deepened through subcutaneous tissues being careful to identify and retract all vital neural and vascular structures. All bleeders were cauterized and ligated as necessary. A transection of the extensor tendon at the distal and proximal interphalangeal joints was performed. A saw was used to resect the base of the distal phalanx and the head of the intermediate phalanx as well as the base of the intermediate phalanx and head of proximal phalanx. A capsulotomy was performed at the metatarsophalangeal joint, then a z-lengthening of the extensor tendon. With still some tightness of contracture to the joint, a McGlamry scoop was gently used to reduce plantar adhesions and this then allowed the toe to have much better motion and alignment. Under the aid of mini C-arm, 0.062 k-wire was placed in the base of the intermediate phalanx and out the distal tip of the toe. This was retrograded back across the proximal phalanx and the second metatarsal head into it's neck. This closed down the interphalangeal joints with good apposition, and k-wire was checked for placement under mini C-arm in all three planes. Excess distal wire was removed after careful bending as it exited the toe, and pin cap was placed. The extensor tendon was repaired using 4-0 Vicryl. Tourniquet was deflated, a prompt hyperemic response was seen to the foot. Subcutaneous closure using Vicryl. Nylon was used to close the skin. The tip of toe where the wire was exiting was dressed with triple antibiotic ointment. A lightly compressive dressing was placed on the foot and she was placed in stockinette and postsurgical boot and transferred to the PACU with vital signs stable. Complications: none Post-operative Condition: stable Disposition: PACU Plan for aftercare: Following a period of postoperative monitoring, the patient will be discharged to home on written and oral postoperative instructions including keeping the dressing dry and intact, no weight to the surgical foot, icing and elevating the foot when seated home. DVT prevention techniques have been reviewed. For the 1st postoperative visit the dressing will be changed and close to the fourth postoperative week we will likely take the first set of x-rays of the foot.
--- NOTE | 2023-10-10 15:12 | PM.PREOP ---
Pre-operative Note Interval Note History & Physical reviewed/Exam performed by Physician: Yes Changes to H&P: No
[2023-10-10] MEDS: CEFAZOLIN 2 GM/100 ML PREMIX 100 ML IV (15:42)
[2023-10-10] MEDS: BUPIVACAINE 0.5% (PF) 30 ML VIAL INJ (16:06)
--- NOTE | 2023-10-10 16:10 | SUR.OPER ---
Supine on padded OR bed, head on pillow, arms secured on padded arm boards at <90 degrees abduction, legs uncrossed, safety belt at thigh, tape over blanket over lower legs.
[2023-10-10 18:13] VITALS: BP 143/82; PULSE 71; RESP 11; TEMP 36.2; O2SAT 98
[2023-10-10 18:17] VITALS: BP 134/78; PULSE 64; RESP 11; O2SAT 98
[2023-10-10] MEDS: ONDANSETRON 4 MG/2 ML INJ IV (18:26)
[2023-10-10] MEDS: OXYCODONE IR 5 MG TABLET PO (18:26)
[2023-10-10] MEDS: hydrOXYzine pamoate 25 MG CAPSULE PO (18:26)
[2023-10-10] MEDS: HYDROMORPHONE 1 MG INJ IV (18:27)
[2023-10-10 18:32] VITALS: BP 125/68; PULSE 66; RESP 12; O2SAT 98
== END 2023-10-10 19:39 | disposition home or self-care (01) ==
PROVIDERS: Family Provider Family Medicine; PCP Family Medicine; Referring Provider Podiatrist; Visit Provider Podiatrist
PROC: (CPT 28750; principal; 2023-10-10 12:15)
DX: M20.12 Hallux valgus (acquired), left foot (principal); M77.52 Other enthesopathy of left foot and ankle; M79.672 Pain in left foot
CPT/HCPCS: 28750; 28308; 28270; 28285; C1713; J0690; J1100; J1170; J2250; J2405; J2704; J3010

== ENCOUNTER → 2023-10-24 12:24 | Outpatient (CLI) | payer MEDICARE, OTHER, SELFPAY ==
[2023-10-24 15:35] LABS: Uric Acid 7.3 mg/dL (2.5-6.2)
[2023-10-24 15:39] LABS: High Sensitivity CRP - Cardiac 2.3 mg/L (1.0-3.0)
== END ==
PROVIDERS: Family Provider Family Medicine; PCP Family Medicine; Referring Provider Family Medicine; Visit Provider Family Medicine
DX: M10.9 Gout, unspecified (principal); E78.2 Mixed hyperlipidemia; I10 Essential (primary) hypertension
CPT/HCPCS: 36415; 84550; 86140

== ENCOUNTER → 2024-02-17 07:54 | Outpatient (CLI) | payer MEDICARE, OTHER, SELFPAY | PROVIDERS: Family Provider Family Medicine; PCP Family Medicine; Visit Provider Physician Assistant Medical | DX: J02.9 Acute pharyngitis, unspecified (principal) | CPT/HCPCS: 87070 ==

== ENCOUNTER → 2024-09-09 07:48 | Outpatient (CLI) | payer MEDICARE, OTHER, SELFPAY ==
--- NOTE | 2024-09-09 | DI.MG.S_ITS ---
BILATERAL DIGITAL SCREENING MAMMOGRAM 3D/2D WITH CAD: 09/09/2024 CLINICAL: Routine screening. Family history of breast cancer. Comparison is made to exams dated: 08/13/2023 mammogram, 08/09/2022 mammogram, and 08/01/2021 mammogram - [facility]. The breasts are almost entirely fatty (category a/<25% glandular tissue). Current study was also evaluated with a Computer Aided Detection (CAD) system. No significant masses, calcifications, or other findings are seen in either breast. There has been no significant interval change. IMPRESSION: NEGATIVE There is no mammographic evidence of malignancy. A 1 year screening mammogram is recommended. Based on the Tyrer Cuzick model (a risk assessment model) the patient's lifetime risk is 4.9% and her 10 year risk is 3.6%. According to the ACR, ACS, and NCCN guidelines, an annual breast MRI exam along with mammogram is recommended if the patient's lifetime risk is 20% or greater. This exam was interpreted at Station ID: [id number]. NOTE: For mammograms, a report in lay terms will be sent to the patient. Approximately 15% of breast malignancies will not be visualized mammographically. In the management of a palpable breast mass, a negative mammogram must not discourage biopsy of a clinically suspicious lesion. Electronically Signed By: Elizabeth lowe/abrahan:09/09/2024 17:12:05 letter sent: Normal Exam ACR BI-RADS Category 1: Negative
== END ==
PROVIDERS: Family Provider Family Medicine; PCP Family Medicine; Referring Provider Family Medicine; Visit Provider Family Medicine
DX: Z12.31 Encounter for screening mammogram for malignant neoplasm of breast (principal); Z80.3 Family history of malignant neoplasm of breast; R92.313 Mammographic fatty tissue density, bilateral breasts
CPT/HCPCS: 77063; 77067

== ENCOUNTER → 2024-11-18 09:45 | Outpatient (CLI) | payer MEDICARE, OTHER, SELFPAY ==
[2024-11-18 11:18] LABS: Alanine Aminotransferase 34 IU/L (<35); Albumin 4.4 g/dL (3.5-5.0); Albumin Globulin Ratio 1.8 (1.0-2.8); Alkaline Phosphatase 88 U/L (38-126); Aspartate Aminotransferase 31 IU/L (14-36); BUN Creatinine Ratio 20.9 (6-22); Bilirubin Total 1.1 mg/dL (0.2-1.3); Blood Urea Nitrogen 18 mg/dL (7-17); Calcium 9.7 mg/dL (8.4-10.2); Carbon Dioxide 24 mmol/L (22-32); Chloride 106 mmol/L (98-107); Cholesterol 196 mg/dL (140-199); Estimated Glomerular Filt Rate > 60 mL/min (>60); Globulin 2.5 g/dL (1.7-4.1); Glucose 95 mg/dL (80-110); HDL Cholesterol 62 mg/dL (40-60); HEMOLYSIS 38 (0-50); LDL Cholesterol Calculated 103 mg/dL (<100); Potassium 4.5 mmol/L (3.4-5.1); Sodium 138 mmol/L (137-145); Total Protein 6.9 g/dL (6.3-8.2); Triglycerides 157 mg/dL (35-150); Uric Acid 6.4 mg/dL (2.5-6.2)
[2024-11-18 11:47] LABS: TSH w/ Reflex to FT4 2.68 uIU/mL (0.47-4.68)
[2024-11-18 12:11] LABS: Creatinine Urine Random 94.41 mg/dL
[2024-11-18 12:17] LABS: Microalbumin Urine Random 0.9 mg/dL (0-1.6)
[2024-11-19 10:22] LABS: Calcium 9.6 mg/dL (8.7-10.3); Parathyroid Hormone, Intact 46 pg/mL (15-65)
[2024-11-19 23:07] LABS: Insulin Level Total 14.9 uIU/mL (2.6-24.9)
== END ==
PROVIDERS: Family Provider Family Medicine; PCP Family Medicine; Referring Provider Family Medicine; Visit Provider Family Medicine
DX: E78.2 Mixed hyperlipidemia (principal); E87.6 Hypokalemia; E55.9 Vitamin D deficiency, unspecified; F41.9 Anxiety disorder, unspecified; I10 Essential (primary) hypertension; Z87.39 Personal history of other diseases of the musculoskeletal system and connective tissue
CPT/HCPCS: 36415; 80053; 80061; 82043; 82310; 82570; 83525; 83970; 84443; 84550

== ENCOUNTER → 2025-02-24 08:10 | Outpatient (CLI) | payer MEDICARE, OTHER, SELFPAY ==
[2025-02-24 09:01] LABS: BUN Creatinine Ratio 16.7 (6-22); Blood Urea Nitrogen 15 mg/dL (7-17); Calcium 9.5 mg/dL (8.4-10.2); Carbon Dioxide 22 mmol/L (22-32); Chloride 108 mmol/L (98-107); Cholesterol 158 mg/dL (140-199); Estimated Glomerular Filt Rate > 60 mL/min (>60); Glucose 108 mg/dL (80-110); HDL Cholesterol 52 mg/dL (40-60); HEMOLYSIS < 15 (0-50); LDL Cholesterol Calculated 65 mg/dL (<100); Potassium 4.3 mmol/L (3.4-5.1); Sodium 139 mmol/L (137-145); Triglycerides 204 mg/dL (35-150)
[2025-02-25 04:08] LABS: CRP, High Sensitivity 2.46 mg/L (0.00-3.00)
[2025-02-25 07:09] LABS: Insulin Level Total 22.1 uIU/mL (2.6-24.9)
== END ==
PROVIDERS: Family Provider Family Medicine; PCP Family Medicine; Referring Provider Family Medicine; Visit Provider Family Medicine
DX: E78.2 Mixed hyperlipidemia (principal); D72.10 Eosinophilia, unspecified; E87.6 Hypokalemia; K52.9 Noninfective gastroenteritis and colitis, unspecified
CPT/HCPCS: 36415; 80048; 80061; 83525; 86140

== ENCOUNTER → 2025-05-20 07:58 | Outpatient (CLI) | payer MEDICARE, OTHER, SELFPAY ==
[2025-05-20 08:43] LABS: Alanine Aminotransferase 24 IU/L (<35); Albumin 4.4 g/dL (3.5-5.0); Albumin Globulin Ratio 1.8 (1.0-2.8); Alkaline Phosphatase 82 U/L (38-126); Blood Urea Nitrogen 19 mg/dL (7-17); Calcium 9.7 mg/dL (8.4-10.2); Carbon Dioxide 25 mmol/L (22-32); Chloride 107 mmol/L (98-107); Cholesterol 155 mg/dL (140-199); Estimated Glomerular Filt Rate > 60 mL/min (>60); Globulin 2.4 g/dL (1.7-4.1); Glucose 99 mg/dL (70-99); HDL Cholesterol 54 mg/dL (40-60); HEMOLYSIS < 15 (0-50); Potassium 4.5 mmol/L (3.4-5.1); Sodium 138 mmol/L (137-145); Total Protein 6.8 g/dL (6.3-8.2); Triglycerides 103 mg/dL (35-150)
[2025-05-21 13:36] LABS: Insulin Level Total 9.8 uIU/mL (2.6-24.9)
== END ==
PROVIDERS: Family Provider Family Medicine; PCP Family Medicine; Referring Provider Family Medicine; Visit Provider Family Medicine
DX: E66.9 Obesity, unspecified (principal); E55.9 Vitamin D deficiency, unspecified; E88.810 Metabolic syndrome
CPT/HCPCS: 36415; 80053; 80061; 83525

== ENCOUNTER → 2025-08-09 15:03 | Outpatient (CLI) | payer MEDICARE, OTHER, SELFPAY ==
--- NOTE | 2025-08-09 15:04 | DI.RAD.S_ITS ---
PROCEDURE: XR LUMBAR SPINE 2-3V INDICATIONS: low back pain with sciatica TECHNIQUE: 3 views of the lumbar spine were acquired. COMPARISON: [facility], , -SPINE 2-3 VIEWS, 08/19/2017, 10:49. FINDINGS: Bones: 5 [id number]-[id number]-elbglma vertebrae are present. There is mild leftward curvature of lumbar spine with apex at L3 level. 6 mm retrolisthesis of L2 on L3 is seen. No vertebral body compression fractures. Loss of disc height, degenerative endplate changes and bilateral facet arthrosis throughout lumbar spine is seen. No suspicious bony lesions. Soft tissues: Overlying bowel gas pattern is normal. No suspicious soft tissue calcifications. IMPRESSION: No acute lumbar spine vertebral body compression fracture. Mild levoscoliosis as above. [id number]-[id number] spondylitic changes throughout lumbar spine. Dictated by: Giovanni العلي M.D. on 08/09/2025 at 17:03 Approved by: Giovanni العلي M.D. on 08/09/2025 at 17:04
== END ==
PROVIDERS: Family Provider Family Medicine; PCP Family Medicine; Referring Provider Family Medicine; Visit Provider Family Medicine
DX: M54.42 Lumbago with sciatica, left side (principal); M41.9 Scoliosis, unspecified; M47.816 Spondylosis without myelopathy or radiculopathy, lumbar region
CPT/HCPCS: 72100

== ENCOUNTER → 2025-10-04 15:46 | Outpatient (CLI) | payer MEDICARE, OTHER, SELFPAY ==
--- NOTE | 2025-10-04 15:48 | DI.MG.S_ITS ---
MM screening mammo BI: 10/04/2025. BI-RADS: 1 CLINICAL: 75-year old female for bilateral screening mammogram. Tyrer-Cuzick lifetime risk of 3.9%. Current reported family history of breast cancer: mother. PRIOR EXAMS 09/09/2024, 08/13/2023, 08/09/2022, 08/01/2021, MAMMOGRAPHY TECHNIQUE: 2D and 3D (tomosynthesis) digital mammographic views obtained, with additional images as needed for full coverage. Current study was also evaluated with a Computer Aided Detection (CAD) system. DENSITY A. The breasts are almost entirely fatty. MAMMOGRAPHY FINDINGS Bilateral: No suspicious mass, asymmetry, microcalcification, or other abnormality seen. IMPRESSION: * No evidence of malignancy. RECOMMENDATIONS Bilateral * Annual screening mammography. OVERALL ASSESSMENT CATEGORY BI-RADS-1: Negative. The [employer] recommends annual screening mammography beginning at age 40 for women with average risk of breast cancer. ELECTRONICALLY SIGNED: Shai Chaparro M.D. on 10/04/2025 at 10:10:48 PM PT Interpreting Station ID: [id number]
== END ==
LOC: MAMMO 15:47
PROVIDERS: Family Provider Family Medicine; PCP Family Medicine; Referring Provider Family Medicine; Visit Provider Family Medicine
DX: Z12.31 Encounter for screening mammogram for malignant neoplasm of breast (principal); R92.313 Mammographic fatty tissue density, bilateral breasts; Z80.3 Family history of malignant neoplasm of breast
CPT/HCPCS: 77063; 77067